=== PATIENT | female | born 1970 | race American Indian/Alaskan Native ===

== ENCOUNTER 2016-10-03 08:25 | Outpatient (CLI) | payer OTHER ==
--- NOTE | 2016-10-03 09:20 | Mammography Report ---
Bilateral mammogram: Compared to 09/21/15. CAD study utilized. Findings: Heterogeneous breast parenchyma bilaterally. No mass or microcalcification. Benign axillary nodes. Impression: Benign findings. Annual followup recommended. BI-RADS CATEGORY: 2 = Benign ACR BI-RADS MAMMOGRAPHIC CODES: 0 = Needs additional imaging evaluation; 1 = Negative; 2 = Benign; 3 = Probably benign; 4 = Suspicious; 5 = Malignant; 6 = Known biopsy-proven malignancy COMMENT: 1. Dense breast tissue, i.e., adenosis, fibrocystic changes, etc., may obscure an underlying neoplasm. 2. Approximately 10% of cancers are not detected with mammography. 3. A negative mammography report should not delay biopsy if a clinically suspicious mass is present. COMMENT: Patient follow-up letters are generated in [employer].
== END 2016-10-03 08:26 | disposition home or self-care (01) ==
LOC: SPVWC 08:25
PROVIDERS: ATTEND Obstetrics & Gynecology
DX: Z12.31 Encounter for screening mammogram for malignant neoplasm of breast (principal)
CPT/HCPCS: 77067; G0202

== ENCOUNTER 2017-11-02 07:55 | Outpatient (CLI) | payer OTHER ==
--- NOTE | 2017-11-02 11:57 | Mammography Report ---
BILATERAL DIGITAL SCREENING MAMMOGRAM with CAD: 11/02/17 07:55:00 CLINICAL: Routine screening. COMPARISON:10/03/16 FINDINGS: The breasts are heterogeneously dense, which may obscure small masses. A left upper outer asymmetry is suggestive of a mass or cyst measuring at least 3 cm and requires additional imaging.No architectural distortion or suspicious calcifications. IMPRESSION: Left asymmetry requiring further workup. BI-RADS CATEGORY: 0 -- Additional Imaging Evaluation Required RECOMMENDATION: Recall for a targeted left breast ultrasound and additional mammographic views if the ultrasound exam is not conclusive. ACR BI-RADS MAMMOGRAPHIC CODES: 0 = Needs additional imaging evaluation; 1 = Negative; 2 = Benign; 3 = Probably benign; 4 = Suspicious; 5 = Malignant; 6 = Known biopsy-proven malignancy COMMENT: 1. Dense breast tissue, i.e., adenosis, fibrocystic changes, etc., may obscure an underlying neoplasm. 2. Approximately 10% of cancers are not detected with mammography. 3. A negative mammography report should not delay biopsy if a clinically suspicious mass is present. COMMENT: Patient follow-up letters are generated via our [employer] application.
== END 2017-11-02 07:56 | disposition home or self-care (01) ==
LOC: SPVWC 07:55
PROVIDERS: ATTEND Obstetrics & Gynecology
DX: Z12.31 Encounter for screening mammogram for malignant neoplasm of breast (principal)
CPT/HCPCS: 77067

== ENCOUNTER 2017-11-15 08:33 | Outpatient (CLI) | payer OTHER ==
--- NOTE | 2017-11-15 09:32 | Ultrasound Report ---
TARGETED LEFT BREAST ULTRASOUND: 11/15/17 08:33:00 CLINICAL: Abnormal screening mammogram. COMPARISON: 11/02/17 mammogram FINDINGS: Ultrasound of the upper outer left breast was performed and demonstrated a benign anechoic cyst at 2 o'clock 8 cm from the nipple.It measures 3.3 x 1.3 x 3.2 cm and correlates with the mammographic asymmetry. The cyst is nontender and nonpainful. No other significant finding. IMPRESSION: A benign asymptomatic 3.3 cm cyst at 2 o'clock left breast. BI-RADS 2 - - Benign RECOMMENDATION: Routine mammographic screening in one year.
== END 2017-11-15 08:34 | disposition home or self-care (01) ==
LOC: SPVWC 08:33
PROVIDERS: ATTEND Physician Assistant Medical
DX: R92.8 Other abnormal and inconclusive findings on diagnostic imaging of breast (principal)

== ENCOUNTER 2018-11-02 09:16 | Outpatient (CLI) | payer SELFPAY ==
--- NOTE | 2018-11-06 11:48 | Mammography Report ---
DIGITAL SCREENING MAMMOGRAM WITH CAD INDICATION: Routine screening mammography. TECHNIQUE: Digital bilateral 2D mammography was obtained in the craniocaudal and mediolateral obliq ue projections. This examination was interpreted with the benefit of Computer-Aided Detection analysi s. COMPARISON: 11/15/2017 and 11/02/2017 FINDINGS: Breast Density: The breasts are heterogeneously dense, which may obscure small masses. There is no evidence of dominant mass, suspicious calcifications or architectural distortion in eith er breast. IMPRESSION: BI-RADS Category 1: Negative. No mammographic evidence of malignancy. Recommend routine screening m ammography in one year. A "normal" or negative report should not discourage follow up or biopsy of a clinically significant f inding. A written summary of these findings will be mailed to the patient. The patient will be entered into a mammography reporting system which will generate a reminder letter for the patient's next appointmen t at the appropriate interval. The [employer] recommends yearly mammograms starting at age 40 and continuing as l leonid as a woman is in good health. Breast MRI is recommended for women with an approximate 20-25% or greater lifetime risk of breast cancer, including women with a strong family history of breast or ova coco cancer or who have been treated for Hodgkin's disease. Signer Name: Yan Whitehead MD Signed: 11/06/2018 11:43 AM Workstation Name: [id number]
== END 2018-11-02 09:17 | disposition home or self-care (01) ==
LOC: SPVWC 09:16
PROVIDERS: ATTEND Obstetrics & Gynecology
DX: Z12.31 Encounter for screening mammogram for malignant neoplasm of breast (principal)
CPT/HCPCS: 77067

== ENCOUNTER 2019-11-05 08:19 | Outpatient (CLI) | payer BC ==
--- NOTE | 2019-11-05 09:25 | Mammography Report ---
DIGITAL SCREENING MAMMOGRAM WITH CAD, 11/05/2019 INDICATION: Routine screening mammography. TECHNIQUE: Digital bilateral 2D mammography was obtained in the craniocaudal and mediolateral obliq ue projections. This examination was interpreted with the benefit of Computer-Aided Detection analysi s. COMPARISON: 11/02/2018, 11/02/2017 FINDINGS: Breast Density: The breasts are heterogeneously dense, which may obscure small masses. There is no evidence of dominant mass, suspicious calcifications or architectural distortion in eithe r breast. IMPRESSION: Follow up recommendation: Routine yearly BI-RADS Category 1: Negative. A "normal" or negative report should not discourage follow up or biopsy of a clinically significant f inding. A written summary of these findings will be mailed to the patient. The patient will be entered into a mammography reporting system which will generate a reminder letter for the patient's next appointmen t at the appropriate interval. The [employer] recommends yearly mammograms starting at age 40 and continuing as l leonid as a woman is in good health. Breast MRI is recommended for women with an approximate 20-25% or greater lifetime risk of breast cancer, including women with a strong family history of breast or ova coco cancer or who have been treated for Hodgkin's disease. Signer Name: Jah Juarez MD Signed: 11/05/2019 9:21 AM Workstation Name: [id number]
== END 2019-11-05 08:20 | disposition home or self-care (01) ==
LOC: SPVWC 08:19
PROVIDERS: ATTEND Obstetrics & Gynecology
DX: Z12.31 Encounter for screening mammogram for malignant neoplasm of breast (principal)
CPT/HCPCS: 77067

== ENCOUNTER 2020-11-05 09:49 | Outpatient (CLI) | payer BC ==
--- NOTE | 2020-11-05 12:44 | Mammography Report ---
DIGITAL SCREENING MAMMOGRAM WITH CAD, 11/05/2020 CLINICAL INFORMATION / INDICATION: Routine screening mammography. SCREENING MAMMO TECHNIQUE: Digital bilateral 2D mammography was obtained in the craniocaudal and mediolateral obliqu e projections. This examination was interpreted with the benefit of Computer-Aided Detection analysis . COMPARISON: 10/29/2012 through 11/05/2019. FINDINGS: Breast Density: The breasts are heterogeneously dense, which may obscure small masses. No dominant mass, suspicious calcifications, or architectural distortion in either breast. IMPRESSION: No mammographic evidence of malignancy. Follow up recommendation: Routine yearly BI-RADS Category 1: Negative. A "normal" or negative report should not discourage follow up or biopsy of a clinically significant f inding. A written summary of these findings will be mailed to the patient. The patient will be entered into a mammography reporting system which will generate a reminder letter for the patient's next appointmen t at the appropriate interval. The [employer] recommends yearly mammograms starting at age 40 and continuing as l leonid as a woman is in good health. Breast MRI is recommended for women with an approximate 20-25% or greater lifetime risk of breast cancer, including women with a strong family history of breast or ova coco cancer or who have been treated for Hodgkin's disease. Signer Name: David Salazar MD Signed: 11/05/2020 12:40 PM Workstation Name: [id number]
== END 2020-11-05 09:50 | disposition home or self-care (01) ==
LOC: SPVWC 09:49
PROVIDERS: ATTEND Obstetrics & Gynecology
DX: Z12.31 Encounter for screening mammogram for malignant neoplasm of breast (principal); N64.89 Other specified disorders of breast
CPT/HCPCS: 77067

== ENCOUNTER 2021-11-09 08:57 | Outpatient (CLI) | payer BC ==
--- NOTE | 2021-11-10 17:59 | Mammography Report ---
DIGITAL SCREENING MAMMOGRAM WITH CAD, 11/09/2021 CLINICAL INFORMATION / INDICATION: Routine screening mammography. SCREENING MAMMO TECHNIQUE: Digital bilateral 2D mammography was obtained in the craniocaudal and mediolateral obliqu e projections. This examination was interpreted with the benefit of Computer-Aided Detection analysis . COMPARISON: 11/05/2020, 11/05/2019 FINDINGS: Breast Density: The breasts are heterogeneously dense, which may obscure small masses. No dominant mass, suspicious calcifications, or architectural distortion in the right breast. There is a new 1.1 cm partially well-circumscribed mass in the left breast at 12:00/retroareolar, mid dle depth. This will require further evaluation with left breast ultrasound and possibly spot henrietta stanley imaging. IMPRESSION: New 11 mm mass in the left breast at 12:00/retroareolar. Recommend left breast ultrasound with possible spot compression imaging. Follow up recommendation: Ultrasound BI-RADS Category 0: INCOMPLETE. Needs additional imaging evaluation and/or prior mammograms for mari alfredon. A "normal" or negative report should not discourage follow up or biopsy of a clinically significant f inding. A written summary of these findings will be mailed to the patient. The patient will be entered into a mammography reporting system which will generate a reminder letter for the patient's next appointmen t at the appropriate interval. The [employer] recommends yearly mammograms starting at age 40 and continuing as l leonid as a woman is in good health. Breast MRI is recommended for women with an approximate 20-25% or greater lifetime risk of breast cancer, including women with a strong family history of breast or ova coco cancer or who have been treated for Hodgkin's disease. Signer Name: Tessy Boo MD Signed: 11/10/2021 5:53 PM Workstation Name: [id number]
== END 2021-11-09 08:58 | disposition home or self-care (01) ==
LOC: SPVWC 08:57
PROVIDERS: ATTEND Obstetrics & Gynecology
DX: Z12.31 Encounter for screening mammogram for malignant neoplasm of breast (principal); N63.21 Unspecified lump in the left breast, upper outer quadrant
CPT/HCPCS: 77067

== ENCOUNTER 2021-12-03 08:29 | Outpatient (CLI) | payer BC ==
--- NOTE | 2021-12-03 09:24 | Ultrasound Report ---
ULTRASOUND BREAST LEFT LIMITED, 12/03/2021 CLINICAL INFORMATION / INDICATION: ABNORMAL MAMMOGRAM R92.8. 1.1 cm nodule in the left retroareolar r egion near the 12:00 position in the middle depth on screening mammography. TECHNIQUE: Targeted ultrasound evaluation was performed of the area of interest. COMPARISON: Bilateral mammography 11/09/21. FINDINGS: There is a 1.3 cm ovoid cluster of microcysts at the 11:00 position 3 cm from the nipple. There is a 1 cm ovoid minimally complicated cyst at the 11:30 position 4 cm from the nipple. There is a 1.1 cm c luster of microcysts at the 11:00 position 2 cm from the nipple. The findings correspond to the site of the mammographically detected nodule. There is no evidence of a solid mass, posterior shadowing, distortion or other suspicious abnormality . IMPRESSION: Multiple benign-appearing cysts in the region of the mammographically detected nodule. No sonographic evidence of malignancy. Follow up recommendation: Routine yearly screening mammogram. BI-RADS Category 2: BENIGN. A normal or "negative" report should not preclude biopsy or follow-up of a clinically suspicious find ing. Signer Name: David Salazar MD Signed: 12/03/2021 9:19 AM Workstation Name: [id number]
== END 2021-12-03 08:30 | disposition home or self-care (01) ==
LOC: MAMMO 08:29
PROVIDERS: ATTEND Obstetrics & Gynecology
DX: N60.02 Solitary cyst of left breast (principal); N63.20 Unspecified lump in the left breast, unspecified quadrant